=== PATIENT | male | born 1960 | race Caucasian/White ===

== ENCOUNTER 2016-08-11 22:30 | Emergency (ER) | payer MEDICAID ==
[2016-08-12 00:47] LABS: HEMATOCRIT 43.4 % (42.0-54.0); HEMOGLOBIN 14.6 g/dL (13.5-17.5); LYMPHOCYTES 8.1 % (15-50); MCH 29.3 pg (26.0-34.0); MCHC 33.6 g/dL (31.0-37.0); NEUTROPHILS 78.7 % (40-80); PLATELET COUNT 355 10x3/uL (130-400); RBC 4.99 10x6/uL (4.20-6.10); RDW 14.8 % (11.5-14.5); WBC 10.9 10x3/uL (4.8-10.8)
[2016-08-12 00:54] LABS: ALBUMIN 3.4 g/dL (3.4-5.0); ALKALINE PHOSPHATASE 86 U/L (46-116); ALT (SGPT) 12 U/L (10-68); BILIRUBIN - TOTAL 0.93 mg/dL (0.2-1.3); CALC OSMOLALITY 271 mosm/kg (275-300); CALCIUM 9.4 mg/dL (8.5-10.1); CARBON DIOXIDE 23.1 mmol/L (21.0-32.0); CHLORIDE - SERUM 98 mmol/L (98-107); GLUCOSE 132 mg/dL (74-106); POTASSIUM - SERUM 3.6 mmol/L (3.5-5.1); SODIUM 134 mmol/L (136-145); UREA NITROGEN 18 mg/dL (7-18); URIC ACID 7.6 mg/dL (2.6-7.2); eGFR NON AFRICAN AMERICAN 82 mL/min (90-120)
[2016-08-12 00:55] LABS: C-REACTIVE PROTEIN 19.6 mg/dL (0.0-0.9)
[2016-08-13 10:19] LABS: ANA REFLEX - DIRECT Negative (Negative)
[2016-08-30 17:03] VITALS: BMI 25.4
== END 2016-08-12 03:15 | disposition home or self-care (01) ==
LOC: D.ER 22:30
PROVIDERS: Physician Assistant Medical
DX: M10.9 Gout, unspecified (principal); I10 Essential (primary) hypertension; E11.9 Type 2 diabetes mellitus without complications

== ENCOUNTER 2016-08-30 11:33 | Outpatient (CLI) | payer MEDICAID ==
[~2016-08-30] VITALS: Ht 188 cm; Wt 90.0 kg
--- NOTE | ~2016-08-30 | HEMODYNAMI ---
PATIENT:HELEN BELLAMY MEDICAL RECORD: [id number] : 60 LOCATION:[facility] ADMISSION DATE: 08/30/16 Generatedon:08/30/201616:48 Patient name: HELEN BELLAMY Patient #: [id number] SSN: : 1960 Date of study: 08/30/2016 Page: Of Hemodynamic Procedure Report Patient Data Patient Demographics Procedure consent was obtained First Name: HELEN Gender: Male Last Name: JOSESITO : 1960 [facility] Initial: J Age: 56 year(s) Patient #: [id number] Race: Unknown Additional ID: [id number] Contact details Address: [address] [place] [address] State: [place] City: [place] Zip code: [address] Past Medical History Allergies: No known allergies Admission Admission Data Admission Date: 08/30/2016 Admission Time: 11:33 Procedure Procedure Types Cath Procedure Diagnostic Procedure LHC LHC w/Coronaries PCI Procedure Coronary Stent Initial Miscellaneous Procedures Moderate Sedation up to 15 minutes Procedure Description Procedure Date Procedure Date: 08/30/2016 Procedure Start Time: 16:29 Procedure End Time: 16:48 Procedure Staff Name Function Mike Sosa MD Performing Physician Dee Riggs RN Nurse Seamus Walker RT Monitor Mariza Mir RT Scrub Procedure Data Cath Procedure Fluoroscopy Diagnostic fluoroscopy Total fluoroscopy Time: 1.9 time: 1.9 min min Diagnostic fluoroscopy Total fluoroscopy dose: 438 dose: 438 mGy mGy Contrast Material Contrast Material Type Amount (ml) Isovue 300 86 Entry Location Entry Primary Successful Side Size Upsize Upsize Entry Closure Succes sful Closure Location (Fr) 1 (Fr) 2 (Fr) Remarks Device Remarks Femoral Right 6 Fr Exoseal artery Short Estimated blood loss: 10 ml Diagnostic catheters Device Type Used For End Catheter Placement Cordis 5Fr Pigtail Procedure Catheter (MP) Cordis 5Fr JL 4.0 Procedure Catheter (MP) Cordis 5Fr 3DRC Catheter Procedure (MP) Procedure Complications No complications Procedure Medications Medication Administration Route Dosage Oxygen NC 2 l/min Heparin Flush Bag added to field 2 bags (1000units/500ml NS) Lidocaine 2% added to field 20 Versed I.V. 1 mg Fentanyl I.V. 50 mcg Versed I.V. 1 mg Fentanyl I.V. 50 mcg Fentanyl I.V. 50 mcg Versed I.V. 1 mg Versed I.V. 1 mg Fentanyl I.V. 50 mcg Heparin Bolus I.V. 4000 units Hemodynamics Rest Heart Rate: 116 (bpm) Pressure Samples Time Site Value (mmHg) Purpose Heart Use Rate(bpm) 16:32 AO 130/79(101) Snapshot 84 Snapshots Pre Cath Intra NCS Post Cath Vital Signs Time Heart Resp SPO2 NIBP (mmHg) Rhythm Pain Sedation Rate (ipm) (%) Status Level (bpm) 16:11:28 114 21 99 Measuring NSR 0 (11) 10(A) , No pain 16:11:53 110 16 100 206/112(168) NSR 0 (11) 10(A) , No pain 16:16:15 102 16 99 187/103(134) NSR 0 (11) 10(A) , No pain 16:20:39 97 17 98 171/98(129) NSR 0 (11) 10(A) , No pain 16:25:39 92 14 95 Measuring NSR 0 (11) 10(A) , No pain 16:25:42 92 16 95 158/92(118) NSR 0 (11) 10(A) , No pain 16:29:54 86 16 96 139/84(111) NSR 0 (11) 10(A) , No pain 16:34:04 96 16 95 150/95(116) NSR 0 (11) 9(A) , No pain 16:38:20 83 16 96 150/88(132) NSR 0 (11) 9(A) , No pain 16:42:32 89 13 159/95(138) NSR 0 (11) 9(A) , No pain 16:46:50 91 14 155/99(139) NSR 0 (11) 9(A) , No pain Medications Time Medication Route Dose Verified Delivered Reason Notes Effectiveness by by 16:10:40 Oxygen NC 2 Mike Price Per physician l/min Ian Riggs RN 16:10:48 Heparin Flush added 2 Mike Mckeon used for Bag to bags Ian Sosa MD procedure (1000units/500ml field NS) 16:10:54 Lidocaine 2% added 20ml Mike Mike used for to vial Ian Sosa MD procedure field 16:23:41 Versed I.V. 1 mg Mike Dee for sedation Ian Riggs RN 16:23:49 Fentanyl I.V. 50 Mike Dee for sedation mcg Ian Riggs RN 16:25:41 Fentanyl I.V. 50 Mike Dee for sedation mcg Ian Riggs RN 16:25:52 Versed I.V. 1 mg Mike Dee for sedation Ian Riggs RN 16:27:04 Versed I.V. 1 mg Mike Dee for sedation Ian Riggs RN 16:27:57 Fentanyl I.V. 50 Mike Dee for sedation mcg Ian Riggs RN 16:30:28 Versed I.V. 1 mg Mike Dee for sedation Ian Riggs RN 16:30:30 Fentanyl I.V. 50 Mike Dee for sedation mcg Ian Riggs RN 16:35:21 Heparin Bolus I.V. 4000 Mike Dee for dose units Ian Riggs RN anticoagulation verified [facility] sosa Procedure Log Time Note 15:50:01 Seamus Walker RT(R) sent for patient. Start room use. 15:52:02 Time tracking: Regular hours 15:52:05 Plan of Care:Hemodynamics will remain stable., Cardiac rhythm will remain stable., Comfort level will be maintained., Respiratory function will remain adequate., Patient/ family verbilizes understanding of procedure., Procedure tolerated without complication., Recovers from procedure without complications.. 16:04:26 Patient received from ED to CCL 2 Alert and oriented. Tansferred to table in Supine position. 16:04:27 Warm blankets applied, and radha hugger turned on for patient comfort. 16:04:27 Correct patient and procedure confirmed by team. 16:04:28 Signed procedure consent form obtained from patient. 16:04:29 ECG and BP/O2 sat monitors applied to patient. 16:09:40 Vital chart was started 16:10:40 Oxygen 2 l/min NC was administered by Dee Benzie RN; Per physician; 16:10:48 Heparin Flush Bag (1000units/500ml NS) 2 bags added to field was administered by Mike Sosa MD; used for procedure; 16:10:54 Lidocaine 2% 20ml vial added to field was administered by Mike Sosa MD; used for procedure; 16:13:50 Baseline sample Acquired. 16:13:55 Rhythm: sinus tachycardia 16:13:57 Full Disclosure recording started 16:14:05 H&P Date Dictated: 08/30/2016 Emergent; H&P N/A. 16:14:05 Pre-procedure instructions explained to patient. 16:14:05 Pre-op teaching completed and patient verbalized understanding. 16:14:06 Family in waiting room. 16:14:08 Patient NPO since Midnight. 16:14:13 Patient allergic to No known allergies 16:14:15 Is the patient allergic to Iodine/contrast media? No. 16:14:16 Is patient on blood thinner?Yes 16:14:18 ACC The patient was administered the following blood thiners within the last 24 hours: ACCPlavix 16:14:20 Patient diabetic? Yes. 16:14:23 If diabetic: On Metformin? Unknown 16:14:28 Previous problem with sedation/anesthesia? No ? 16:14:29 Snore? Yes 16:14:30 Sleep apnea? No 16:14:31 Deviated septum? No 16:14:32 Opens mouth fully? Yes 16:14:33 Sticks out tongue? Yes 16:14:34 Airway obstruction? No ? 16:14:36 Dentures? No ? 16:14:39 Pre procedure: right dorsailis pedis pulse 1+ Palpable, but thready & weak; easily obliterated 16:14:41 Patient pain scale 0/10 ?. 16:14:49 IV patent on arrival in right wrist with 0.9% NaCl at O. 16:14:51 Lab results completed and on chart. 16:15:00 Right groin area was prepped with chlora-prep and draped in sterile fashion 16:15:01 Alarms reviewed by R. N. 16:15:02 Sharps counted by scrub and verified by R.N. 16:15:05 Use device set Femoral Dx 16:15:07 Tegaderm 4 x 4 opened to sterile field. 16:15:08 Acist Hand Control opened to sterile field. 16:15:09 Acist Manifold opened to sterile field. 16:15:10 Acist Syringe opened to sterile field. 16:15:10 Bag Decanter opened to sterile field. 16:15:10 Medline Cath Pack opened to sterile field. 16:15:11 St [place]by 260cm J .035 wire opened to sterile field. 16:15:12 Diagnostic Infinity 5Fr Multipack catheter opened to sterile field. 16:15:22 Terumo 6Fr [place] Sheath opened to sterile field. 16:23:04 --------ALL STOP TIME OUT------ 16:23:05 Final Timeout: patient, procedure, and site verified with staff and physician. All members of the team are in agreement. 16:23:07 Right groin site verified by team. 16:23:10 Physical assessment completed. ASA score P 2 - A patient with mild systemic disease as per Mike Sosa MD. 16:23:14 Sedation plan: IV Moderate Sedation Versed, Fentanyl 16:23:41 Versed 1 mg I.V. was administered by Dee Riggs RN; for sedation; 16:23:49 Fentanyl 50 mcg I.V. was administered by Dee Riggs RN; for sedation; 16:23:56 Zero performed for pressure channel P1 16:23:59 Zero performed for pressure channel P1 16:24:02 Zero performed for pressure channel P1 16:25:41 Fentanyl 50 mcg I.V. was administered by Dee Rigsg RN; for sedation; 16:25:52 Versed 1 mg I.V. was administered by Dee Riggs RN; for sedation; 16:27:04 Versed 1 mg I.V. was administered by Dee Riggs RN; for sedation; 16:27:57 Fentanyl 50 mcg I.V. was administered by Dee Riggs RN; for sedation; 16:29:40 Procedure started. 16:29:44 Local anesthetic to right femoral artery with Lidocaine 2% by Mike Sosa MD.INITIAL ACCESS ONLY 16:30:28 Versed 1 mg I.V. was administered by Dee Riggs RN; for sedation; 16:30:30 Fentanyl 50 mcg I.V. was administered by Dee Riggs RN; for sedation; 16:30:38 A 6 Fr Short sheath was inserted into the Right Femoral artery 16:30:48 A Cordis 5Fr Pigtail Catheter (MP) was advanced over the wire and used for Procedure. 16:31:03 LV angiography performed. 16:31:05 LV gram done using JACOME 16:31:18 EF : 60 % 16:31:31 Injector settings: Ml/sec: 10, Volume: 20, 16:31:33 Catheter removed. 16:31:57 A Cordis 5Fr JL 4.0 Catheter (MP) was advanced over the wire and used for Procedure. 16:32:29 LCA angiography performed. 16:32:52 Catheter removed. 16:33:27 A Cordis 5Fr 3DRC Catheter (MP) was advanced over the wire and used for Procedure. 16:33:42 RCA angiography performed. 16:33:43 Catheter removed. 16:33:48 Carlos LucidMediaisper J 300cm 0.014 guide wire opened to sterile field. 16:33:49 Alter EcoixCompak Inflation Kit opened to sterile field. 16:35:04 Medtronic Launcher 6Fr 3DRC guide catheter opened to sterile field. 16:35:21 Heparin Bolus 4000 units I.V. was administered by Dee Riggs RN; for anticoagulation; dose verified wt dr sosa 16:35:27 6 Fr 3DRC guide catheter was inserted over the wire 16:35:50 Whisper wire advanced. 16:36:30 Wire advanced across lesion. 16:36:35 Inflation Number: 1 A Medtronic Integrity 3.5 X 15 stent was prepped and advanced across the Prox RCA. The stent was deployed at 17 CONNER for 0:10 (min:sec). 16:37:07 Inflation number: 2 The stent balloon was then re-inflated across the Prox RCA to 13 CONNER for 0:10 (min:sec). 16:37:19 Stent catheter was removed intact over wire. 16:37:20 Wire removed. 16:37:20 Guide catheter removed. 16:37:42 Cordis 6Fr Exoseal opened to sterile field. 16:37:51 Sheath removed intact; hemostasis achieved with Exoseal to the Right Femoral artery. 16:37:53 Procedure ended.(Physican Out) 16:39:44 Fluoroscopy time 01.90 minutes. 16:39:47 Fluoroscopy dose: 438 mGy 16:39:47 Flurop Dose total: 438 16:39:53 Contrast amount:Isovue 300 86ml. 16:39:54 Sharps counted by scrub and verified by R.N. 16:39:55 Insertion/operative site no bleeding no hematoma. 16:39:58 Post-op/insertion site Right Femoral artery dressed using a 4 x 4 and Tegaderm. 16:39:59 Post Procedure Pulses reassessed and unchanged 16:40:01 Post-procedure physical assessment completed. ASA score P 2 - A patient with mild systemic disease as per Mike Sosa MD. 16:40:18 Post procedure rhythm: sinus rhythm 16:40:21 Estimated blood loss: 10 ml 16:40:24 Post procedure instruction explained to patient.Patient verbalizes understanding. 16:40:24 Patient needs reinforcement of post procedure teaching. 16:40:37 Procedure type changed to Cath procedure, Diagnostic procedure, LHC, LHC w/Coronaries, PCI procedure, Coronary Stent Initial, Miscellaneous Procedures, Moderate Sedation up to 15 minutes 16:40:57 Procedure Complication : No complications 16:41:01 Procedure and supply charges have been captured, reviewed, submitted and are correct. 16:47:30 Vital chart was stopped 16:47:31 See physician's report for complete and final results. 16:47:57 Report given to PCU. 16:48:01 Patient transfered to PCU with Bed. 16:48:03 Procedure ended. 16:48:03 Full Disclosure recording stopped 16:48:06 End room use (Document Last) Intervention Summary Intervention Notes Time ActionType Lesion and Equipment Action# Pressure Duration Attributes Used 16:36:35 Place stent Prox RCA Medtronic 1 17 00:10 Integrity 3.5 X 15 stent 16:37:07 Reinflate Prox RCA Medtronic 2 13 00:10 stent Integrity balloon 3.5 X 15 stent Device Usage Item Name Manufacture Quantity Catalog Hospital Part Current Minimal L ot# / Number Charge Number Stock Stock Serial# Code Tegaderm 4 3M 1 1626W 726288 249951 286560 5 x 4 Acist Hand Acist 1 56343 564464 240525 239986 5 UKDN Waterflow Acist Acist 1 51778 097784 581801 350868 5 Mswipe Technologies Acist Acist 1 37637 709358 127831 686206 20 Syringe Medical Systems Inc Bag Microtek 1 2002S 846960 98498 759663 5 Decanter Medical Inc. Medline Cardinal 1 [id number] 573228 61482 353968 [address] [facility] Rob[place] 1 474648 551894 588362 103944 30 260cm J .035 wire Diagnostic Cardinal 1 [id number] 776563 47438 193384 30 Infinity Health 5Fr Multipack catheter Terumo 6Fr Terumo 1 FAP899 880848 422817 211723 40 [place] Sheath Cordis 5Fr Cardinal 1 328965 5 Pigtail Health Catheter (MP) Cordis 5Fr Cardinal 1 316748 5 JL 4.0 Health Catheter (MP) Cordis 5Fr Cardinal 1 796255 5 3DRC Health Catheter (MP) Carlos Carlos 1 [id number] 374124 697176 955291 5 Whisper J Vascular 300cm 0.014 guide wire Merit Merit 1 UP7965 654383 493536 783452 15 BasixComnjk Medical Inflation Kit Medtronic Medtronic 1 [id number] 937631 228282 384447 1 Launcher 6Fr 3DRC guide catheter Medtronic Medtronic 1 [id number] 866977 927785 741911 1 0 [id number] Integrity 3.5 X 15 stent Cordis 6Fr Cardinal 1 EX600 997522 766181 869259 10 [facility] Thrill Signature Audit [place] Stage Time Signature Unsigned Intra-Procedure 08/30/2016 Seamus Walker 4:48:44 PM RT(R) Signatures Monitor : Seamus Walker RT Signature : Date : Time : [facility] [address] [place] [address]
[2016-08-30 12:22] LABS: BASOPHILS 0.4 % (0-2); HEMATOCRIT 45.7 % (42.0-54.0); IMMATURE GRANULOCYTES 0.3 % (0-5); MCH 29.1 pg (26.0-34.0); MCHC 32.8 g/dL (31.0-37.0); MCV 88.7 fL (80.0-100.0); MEAN PLATELET VOLUME 9.9 fL (7.4-10.4); MONOCYTES 7.4 % (2-11); NEUTROPHILS 75.9 % (40-80); PLATELET COUNT 305 10x3/uL (130-400); RBC 5.15 10x6/uL (4.20-6.10); RDW 14.7 % (11.5-14.5); WBC 10.3 10x3/uL (4.8-10.8)
[2016-08-30 12:42] LABS: ALBUMIN 3.8 g/dL (3.4-5.0); ALKALINE PHOSPHATASE 98 U/L (46-116); ALT (SGPT) 20 U/L (10-68); BILIRUBIN - TOTAL 0.33 mg/dL (0.2-1.3); CALC OSMOLALITY 283 mosm/kg (275-300); CALCIUM 9.6 mg/dL (8.5-10.1); CHLORIDE - SERUM 102 mmol/L (98-107); CREATININE - SERUM 1.1 mg/dL (0.6-1.3); GLUCOSE 132 mg/dL (74-106); POTASSIUM - SERUM 3.6 mmol/L (3.5-5.1); PROTEIN - SERUM 7.8 g/dL (6.4-8.2); SODIUM 140 mmol/L (136-145); UREA NITROGEN 22 mg/dL (7-18); eGFR NON AFRICAN AMERICAN 73 mL/min (90-120)
[2016-08-30 12:50] LABS: AMYLASE - SERUM 74 U/L (25-115); LIPASE 253 U/L (73-393); PRO BNP 704 pg/mL (0-125)
[2016-08-30 13:00] LABS: TROPONIN-I < 0.017 ng/mL (0.000-0.060)
[2016-08-30 13:30] LABS: APPEARANCE CLEAR (CLEAR); BILIRUBIN NEGATIVE (NEGATIVE); COLOR STRAW (YELLOW); GLUCOSE NEGATIVE (NEGATIVE); KETONE NEGATIVE (NEGATIVE); LEUKOCYTE ESTERASE NEGATIVE (NEGATIVE); NITRITE NEGATIVE (NEGATIVE); PROTEIN NEGATIVE (NEGATIVE); UROBILINOGEN NORMAL (NORMAL)
[2016-08-30 13:34] LABS: UDS - AMPHET NEGATIVE QUAL (NEGATIVE); UDS - BARB NEGATIVE QUAL (NEGATIVE); UDS - BENZO NEGATIVE QUAL (NEGATIVE); UDS - COCAINE NEGATIVE QUAL (NEGATIVE); UDS - METH NEGATIVE QUAL (NEGATIVE); UDS - OPIATE NEGATIVE QUAL (NEGATIVE); UDS - PCP NEGATIVE QUAL (NEGATIVE); UDS - THC NEGATIVE QUAL (NEGATIVE)
[2016-08-30] MEDS ORDERED: NORVASC5 MG PO (17:02)
[2016-08-30 17:03] VITALS: BP 142/83; Ht 188 cm; Wt 90.0 kg
[2016-08-30] MEDS ORDERED: PLAVIX75 MG PO (17:03)
--- NOTE | 2016-08-30 17:14 | NUR ---
PT ARRIVED TO FLOOR FROM [facility] IN BED. ADMITTED PT FOR BRIGITTE SAENZ. PT COMPLETELY ADMITTED, VS ARE WNL R GROIN SITE WNL. PLACED ON TELE. HANDING OFF PT TO BRIGITTE SAENZ
[2016-08-30 19:00] VITALS: BP 132/69
--- NOTE | 2016-08-30 19:00 | NUR ---
RECEIVED REPORT AND ASSUMED PT CARE FROM DAY SHIFT NURSE @ THIS TIME.
[2016-08-30] MEDS ORDERED: HYDROCODON-ACE1 EAC7 PO (19:42)
--- NOTE | 2016-08-30 21:17 | NUR ---
PT OFF BEDREST. NO NEEDS VOICED. RIGHT GROIN C/D/I. NO HEMATOMA NOTED. IVF'S SALINE LOCKED. NSR ON MONITOR, HR 81. CALL LIGHT WITHIN REACH. WILL CONT TO MONITOR.
[2016-08-31] VITALS: BP 165/79
[2016-08-31 04:26] VITALS: BP 160/82
--- NOTE | 2016-08-31 07:22 | NUR ---
ASSESSMENT COMPLETED.TELEMERTY SHOWS SR 77. ON ROOM AIR. RIGHT HAND SL. RIGHT GROIN SOFT WITH DRSG DRY AND INTACT. C/O KNEE PAIN UNRELIEVED BY NORCO. WILL DISCUSS WITH DR. AMIRAH GRACE WITH SR UP. UP AB DENNISE
--- NOTE | 2016-08-31 07:53 | NUR ---
RESTING QUIETLY RESP UNLABORED PT DENIES ANY NEEDS OR DISCOMFORT NAD NOTED
[2016-08-31 08:12] VITALS: BP 157/80
--- NOTE | 2016-08-31 16:06 | NUR ---
PT DISCHARGED. IV DCD WITH TIP INTACT. INSTRUCTIONS GIVEN TO PT. TO TAXI PER WHEELCHAIR
--- NOTE | 2016-09-04 08:06 | OP ---
PATIENT NAME: HELEN BELLAMY MEDICAL RECORD: [id number] :60 LOCATION:D.CAT ADMISSION DATE: SURGEON: SARI UGALDE MD DATE OF OPERATION: 08/30/2016 PROCEDURES: 1. PTCA stent of RCA. 2. Left heart catheterization. 3. Selective coronary angiography. 4. Left ventriculogram. INDICATION: Angina and coronary artery disease. PROCEDURE: After informed consent was obtained and after detailed explanation of risks, benefits as well as alternative therapies, the patient elected to proceed with angiogram and angioplasty. The right femoral area was prepped and draped in normal sterile fashion. The right femoral artery was cannulated via modified Seldinger technique with placement of 6-Tajik sheath. All catheters exchanged through this sheath. FINDINGS: Left ventriculogram was performed in standard 30-degree JACOME view, reveals preserved cardiac wall motion, ejection fraction 55%. SELECTIVE CORONARY ANGIOGRAPHY: 1. Left main showed no significant angiographic disease. 2. Left anterior descending has mild irregularities, but no flow-limiting stenosis. 3. The left circumflex has mild irregularities, but no flow-limiting stenosis. Previously placed stent in the circumflex and obtuse marginal are widely patent. 4. The right coronary has previously placed stents, these are widely patent; however, proximal to this, in the extreme proximal portion vessel, there is 80% stenosis throughout. PERCUTANEOUS TRANSLUMINAL CORONARY ANGIOPLASTY STENT OF THE RIGTH CORONARY ARTERY: The stent used was a 3.5 x 15-mm Integrity. Result was 0% residual stenosis. OVERALL IMPRESSION: Successful percutaneous transluminal coronary angioplasty stent of the right coronary artery going from 80% initial stenosis to 0% residual. TRANSINT:[id number] Voice Confirmation ID: [id number] DOCUMENT ID: [id number] SARI UGALDE MD at 0806 CC: [id number] DICTATION DATE: 08/30/16 1643 CLIENT RETENTION SPECIALIST: 08/30/16 2352 DEP CLI 08/31/[address] [address]
--- NOTE | 2016-09-04 08:06 | DS ---
PATIENT:HELEN BELLAMY :60 MEDICAL RECORD: [id number] DISCHARGE SUMMARY ADMISSION DATE: 08/30/16 DISCHARGE DATE: 08/31/16 DATE OF SERVICE: 08/31/2016 DISCHARGE: 1. Unstable angina. 2. Coronary artery disease. 3. Percutaneous transluminal coronary angioplasty stent right coronary artery this admission. HOSPITAL COURSE: Mr. Bellamy presents with anginal symptomatology, found to have single vessel disease to the RCA, underwent successful PTCA stent of the RCA. He was discharged home to continue aspirin and Plavix. Follow up with [facility] in 1 month. TRANSINT:[id number] Voice Confirmation ID: [id number] DOCUMENT ID: [id number] SARI UGALDE MD at 0806 CC: [id number] DICTATION DATE: 08/31/16 1114 LACROSSE PLAYER: 08/31/16 2156 DEP CLI 08/31/[address] [address]
--- NOTE | 2016-09-04 08:06 | CN ---
PATIENT NAME:HELEN BELLAMY MEDICAL RECORD: [id number] : 60 LOCATION:D.CAT ADMIT DATE: ACCOUNT: [id number] CONSULTING PHYSICIAN: SARI UGALDE MD REFERRING PHYSICIAN: SARI UGALDE MD DATE OF CONSULTATION: 08/30/2016 DIAGNOSES: 1. Angina. 2. Coronary artery disease. 3. Previous percutaneous transluminal coronary angioplasty stent times 2-vessel, February 2016, at [facility]. HISTORY OF PRESENT ILLNESS: This is a gentleman with a past history of a myocardial infarction, PTCA stent times 2 vessels, at [facility] at [facility] in February 2016, was doing fine until yesterday, but had sudden onset of chest pain yesterday. Chest pain has actually worsened with his myocardial infarction. He has continued to have multiple episodes of chest pain today, he continues to have chest pain. His EKG was nothing acute. His troponin is normal. PHYSICAL EXAMINATION: GENERAL APPEARANCE: Well-nourished, well-developed, appears stated age. Level of distress, comfortable. PSYCHIATRIC: Mental status, alert, normal affect. Orientation, oriented to time, place and person. EYES: Lids and conjunctiva, noninjected. No discharge, no pallor. ENT: Lips, teeth, gums, normal dentition. Oropharynx, no cyanosis, no pallor. NECK: Carotid arteries, bilateral normal upstroke, no bruits, no thrills. JUGULAR VEINS: No jugular venous pressure or distention. CERVICAL LYMPH NODES: Nontender, nonenlarged. THYROID: Not enlarged. Nontender. No nodules. LUNGS: Respiratory effort, unlabored. CHEST: Normal curvature. No thoracic deformity. No chest wall tenderness. Percussion, resonant. Auscultation, clear. No wheezes, no rales, no rhonchi. CARDIOVASCULAR: Precordial exam, nondisplaced. No heaves or pericardial thrills. Rate and rhythm, regular. Heart sounds, normal S1, normal S2. No S3, no gallop, no rub. Systolic murmur, not heard. Diastolic murmur, not heard. EXTREMITIES: No cyanosis, no edema. Peripheral pulses, full and equal in all extremities, except as noted. No bruits appreciated. ABDOMEN: Soft, nondistended. Normal aorta. No bruit. Nontender. No masses. Liver, nontender, no hepatomegaly. Spleen, nontender, no splenomegaly. MUSCULOSKELETAL: No joint tenderness. No joint swelling. No erythema. NEUROLOGICAL: Normal gait, normal strength, normal tone. SKIN: Warm and dry. REVIEW OF SYSTEMS: The patient reports easy bruising but reports no swollen glands. The patient reports no fever, no night sweats, no significant weight gain, no significant weight loss. No significant exercise tolerance. The patient reports no dry eyes, no irritation, no vision change. Patient reports no difficulty hearing and no ear pain. Patient reports no frequent nose bleeds or nose and sinus problems. Patient reports on arm pain on exertion. No shortness of breath while lying down. No history of heart murmur. Patient reports no cough, no wheezing or coughing up blood. Patient reports no abdominal pain, no vomiting. Normal appetite. No diarrhea and not vomiting blood. No nausea and no constipation. Patient reports no incontinence. No CONSULT REPORT [id number] HELEN BELLAMY difficulty urinating. No hematuria. No increased frequency. Patient reports no muscle aches. No weakness, no arthralgias, no back pain. No swelling of the extremities. Patient reports no abnormal mole, no jaundice, no rashes. Reports no loss of consciousness. No weakness and no numbness. No seizures, dizziness, or headaches. The patient reports no depression, no sleep disturbance, feeling safe in a relationship and no alcohol abuse. Patient reports on fatigue. Reports no runny nose or sinus pressure. No itching, no hives, and no frequent sneezing. OVERALL IMPRESSION: Chest pain of unknown etiology. We will proceed with coronary angiography. Further care depends upon findings of the angiography. TRANSINT:[id number] Voice Confirmation ID: [id number] DOCUMENT ID: [id number] SARI UGALDE MD at 0806 CC: [id number] DICTATION DATE: 08/30/16 1531 CONTINUOUS MINER OPERATOR HELPER: 08/30/16 1559 [facility] CLI 08/31/16 [place] [id number]
== END 2016-08-31 15:30 | disposition home or self-care (01) ==
LOC: D.CATH 11:33 → D.ER 11:33 → EDSTATUS 14:30 → D.M2 16:53 → D.CATH 08-31 15:30
PROVIDERS: Family Medicine
DX: I25.110 Atherosclerotic heart disease of native coronary artery with unstable angina pectoris (principal); Z95.5 Presence of coronary angioplasty implant and graft

== ENCOUNTER 2016-09-01 04:55 | Emergency (ER) | payer MEDICAID ==
[2016-08-30 17:03] VITALS: BMI 25.4
[~2016-09-01 04:55] MED LIST: HYDROCODON-ACE1 EAC7 PO; NORVASC5 MG PO; PLAVIX75 MG PO
[2016-09-01 05:27] LABS: APPEARANCE CLEAR (CLEAR); BILIRUBIN NEGATIVE (NEGATIVE); COLOR YELLOW (YELLOW); GLUCOSE NEGATIVE (NEGATIVE); KETONE NEGATIVE (NEGATIVE); LEUKOCYTE ESTERASE NEGATIVE (NEGATIVE); NITRITE NEGATIVE (NEGATIVE); PROTEIN NEGATIVE (NEGATIVE); UROBILINOGEN NORMAL (NORMAL)
[2016-09-01 05:28] LABS: UDS - AMPHET NEGATIVE QUAL (NEGATIVE); UDS - BARB NEGATIVE QUAL (NEGATIVE); UDS - BENZO NEGATIVE QUAL (NEGATIVE); UDS - COCAINE NEGATIVE QUAL (NEGATIVE); UDS - METH NEGATIVE QUAL (NEGATIVE); UDS - OPIATE POSITIVE QUAL (NEGATIVE); UDS - PCP NEGATIVE QUAL (NEGATIVE); UDS - THC NEGATIVE QUAL (NEGATIVE)
[2016-09-01 06:01] LABS: BASOPHILS 0.7 % (0-2); EOSINOPHILS 4.7 % (0-7); HEMATOCRIT 42.2 % (42.0-54.0); HEMOGLOBIN 13.5 g/dL (13.5-17.5); IMMATURE GRANULOCYTES 0.4 % (0-5); LYMPHOCYTES 20.6 % (15-50); MCH 28.8 pg (26.0-34.0); MCV 90.2 fL (80.0-100.0); MEAN PLATELET VOLUME 10.4 fL (7.4-10.4); MONOCYTES 9.2 % (2-11); NEUTROPHILS 64.4 % (40-80); PLATELET COUNT 248 10x3/uL (130-400); RBC 4.68 10x6/uL (4.20-6.10); RDW 15.2 % (11.5-14.5)
[2016-09-01 06:04] LABS: WBC 5.6 10x3/uL (4.8-10.8)
[2016-09-01 06:12] LABS: CALC OSMOLALITY 284 mosm/kg (275-300); CALCIUM 8.9 mg/dL (8.5-10.1); CARBON DIOXIDE 24.1 mmol/L (21.0-32.0); CHLORIDE - SERUM 105 mmol/L (98-107); CREATININE - SERUM 0.9 mg/dL (0.6-1.3); GLUCOSE 128 mg/dL (74-106); SODIUM 141 mmol/L (136-145); UREA NITROGEN 17 mg/dL (7-18); eGFR NON AFRICAN AMERICAN > 90 mL/min (90-120)
== END 2016-09-01 18:45 | disposition short-term general hospital (02) ==
LOC: D.ER 04:55
PROVIDERS: Family Medicine
DX: F32.9 Major depressive disorder, single episode, unspecified (principal); I10 Essential (primary) hypertension; E11.9 Type 2 diabetes mellitus without complications

== ENCOUNTER 2017-05-26 17:12 | Emergency (ER) | payer MEDICAID ==
[2016-08-30 17:03] VITALS: BMI 25.4
[2017-05-26 17:36] LABS: BASOPHILS 0.5 % (0-2); EOSINOPHILS 2.5 % (0-7); HEMATOCRIT 39.8 % (42.0-54.0); HEMOGLOBIN 12.6 g/dL (13.5-17.5); IMMATURE GRANULOCYTES 0.8 % (0-5); LYMPHOCYTES 14.8 % (15-50); MCH 28.4 pg (26.0-34.0); MCHC 31.7 g/dL (31.0-37.0); MCV 89.8 fL (80.0-100.0); MEAN PLATELET VOLUME 9.8 fL (7.4-10.4); MONOCYTES 7.8 % (2-11); NEUTROPHILS 73.6 % (40-80); RBC 4.43 10x6/uL (4.20-6.10); RDW 14.9 % (11.5-14.5); WBC 9.1 10x3/uL (4.8-10.8)
[2017-05-26 17:38] LABS: PLATELET COUNT 303 10x3/uL (130-400)
[2017-05-26 17:50] LABS: ALBUMIN 3.8 g/dL (3.4-5.0); ALKALINE PHOSPHATASE 92 U/L (46-116); ALT (SGPT) 18 U/L (10-68); BILIRUBIN - TOTAL 0.53 mg/dL (0.2-1.3); CALC OSMOLALITY 286 mosm/kg (275-300); CALCIUM 10.1 mg/dL (8.5-10.1); CARBON DIOXIDE 23.9 mmol/L (21.0-32.0); CHLORIDE - SERUM 103 mmol/L (98-107); CREATININE - SERUM 1.5 mg/dL (0.6-1.3); GLUCOSE 153 mg/dL (74-106); POTASSIUM - SERUM 4.2 mmol/L (3.5-5.1); PROTEIN - SERUM 7.8 g/dL (6.4-8.2); SODIUM 138 mmol/L (136-145); UREA NITROGEN 34 mg/dL (7-18); eGFR NON AFRICAN AMERICAN 51 mL/min (90-120)
[2017-05-26 18:07] LABS: CHOLESTEROL, TOTAL 109 mg/dL (0-200); CKMB 0.7 U/L (0.0-3.6); CREATINE KINASE 56 UL (21-232); HDL CHOLESTEROL 27 mg/dL (32-96); LDL CHOLESTEROL 61 mg/dL (0-100); LDL-HDL RATIO 2.3 ratio (1.5-3.5); TRIGLYCERIDE 108 mg/dL (30-200)
[2017-05-26 18:16] LABS: TROPONIN-I < 0.017 ng/mL (0.000-0.060)
[2017-05-26 20:16] LABS: UDS - AMPHET NEGATIVE QUAL (NEGATIVE); UDS - BARB NEGATIVE QUAL (NEGATIVE); UDS - BENZO NEGATIVE QUAL (NEGATIVE); UDS - COCAINE NEGATIVE QUAL (NEGATIVE); UDS - OPIATE NEGATIVE QUAL (NEGATIVE); UDS - PCP NEGATIVE QUAL (NEGATIVE); UDS - THC NEGATIVE QUAL (NEGATIVE)
[2017-05-26 20:22] LABS: APPEARANCE HAZY (CLEAR); COLOR YELLOW (YELLOW); SPECIFIC GRAVITY 1.015 (1.005-1.020)
[2017-05-26 20:23] LABS: BILIRUBIN NEGATIVE (NEGATIVE); GLUCOSE NEGATIVE (NEGATIVE); KETONE NEGATIVE (NEGATIVE); NITRITE POSITIVE (NEGATIVE); PROTEIN TRACE mg/dL (NEGATIVE); UROBILINOGEN NORMAL (NORMAL); WHITE CELLS - URINE 25-50 /hpf (0-5)
[2017-05-26 20:24] LABS: BACTERIA MANY /hpf (NONE SEEN); EPITHELIAL CELLS 0-5 /hpf (0-5)
== END 2017-05-27 05:07 | disposition short-term general hospital (02) ==
LOC: D.ER 17:12
PROVIDERS: Family Medicine
DX: R07.9 Chest pain, unspecified (principal); I10 Essential (primary) hypertension; E11.9 Type 2 diabetes mellitus without complications

== ENCOUNTER 2017-10-08 15:04 | Emergency (ER) | payer MEDICAID ==
[2016-08-30 17:03] VITALS: BMI 25.4
[2017-10-08 15:48] LABS: BASOPHILS 0.6 % (0-2); EOSINOPHILS 4.7 % (0-7); HEMATOCRIT 44.9 % (42.0-54.0); HEMOGLOBIN 14.2 g/dL (13.5-17.5); IMMATURE GRANULOCYTES 0.8 % (0-5); LYMPHOCYTES 19.4 % (15-50); MCH 27.5 pg (26.0-34.0); MCHC 31.6 g/dL (31.0-37.0); MCV 86.8 fL (80.0-100.0); MEAN PLATELET VOLUME 9.6 fL (7.4-10.4); MONOCYTES 6.2 % (2-11); NEUTROPHILS 68.3 % (40-80); RBC 5.17 10x6/uL (4.20-6.10); RDW 15.8 % (11.5-14.5); WBC 10.7 10x3/uL (4.8-10.8)
[2017-10-08 15:51] LABS: PLATELET COUNT 397 10x3/uL (130-400)
[2017-10-08 16:01] LABS: ALBUMIN 3.9 g/dL (3.4-5.0); ANION GAP 15.4 mmol/L (8-16); BILIRUBIN - TOTAL 0.45 mg/dL (0.2-1.3); CALCIUM 9.8 mg/dL (8.5-10.1); CARBON DIOXIDE 29.3 mmol/L (21.0-32.0); CREATININE - SERUM 1.2 mg/dL (0.6-1.3); POTASSIUM - SERUM 3.7 mmol/L (3.5-5.1); PROTEIN - SERUM 8.3 g/dL (6.4-8.2)
[2017-10-08 16:03] LABS: APPEARANCE CLEAR (CLEAR); BILIRUBIN NEGATIVE (NEGATIVE); COLOR DK YELLOW (YELLOW); GLUCOSE NEGATIVE (NEGATIVE); KETONE NEGATIVE (NEGATIVE); NITRITE NEGATIVE (NEGATIVE); PROTEIN 1+ mg/dL (NEGATIVE); UROBILINOGEN NORMAL (NORMAL)
[2017-10-08 16:05] LABS: BACTERIA MANY /hpf (NONE SEEN); RED CELLS - URINE 0-5 /hpf (0-5)
[2017-10-08 17:58] LABS: UDS - AMPHET NEGATIVE QUAL (NEGATIVE); UDS - BARB NEGATIVE QUAL (NEGATIVE); UDS - BENZO POSITIVE QUAL (NEGATIVE); UDS - COCAINE NEGATIVE QUAL (NEGATIVE); UDS - OPIATE NEGATIVE QUAL (NEGATIVE); UDS - PCP NEGATIVE QUAL (NEGATIVE); UDS - THC NEGATIVE QUAL (NEGATIVE)
== END 2017-10-08 22:30 | disposition home or self-care (01) ==
LOC: D.ER 15:04
PROVIDERS: Family Medicine
DX: R45.851 Suicidal ideations (principal); Z86.59 Personal history of other mental and behavioral disorders; N39.0 Urinary tract infection, site not specified; I10 Essential (primary) hypertension; E11.9 Type 2 diabetes mellitus without complications

== ENCOUNTER 2018-02-16 17:43 | Inpatient (IN) | payer MEDICAID ==
[~2018-02-16] VITALS: Ht 188 cm; Wt 93.2 kg
--- NOTE | ~2018-02-16 | MORECARE ---
CASE MANAGEMENT DISCHARGE SUMMARY PATIENT: HELEN BELLAMY UNIT: [id number] ADM DATE: 02/19/18 AGE: 57 : 60 SEX: M ROOM/BED: D.2234 AUTHOR: MAVIS VILLALBA PHYSICIAN: REFERRING PHYSICIAN: ERIC LAYTON MD DATE OF SERVICE: 02/24/18 Discharge Plan Patient Name: HELEN BELLAMY Facility: [facility]:[place] : 1960 Planned Disposition: Inpatient Rehab Anticipated Discharge Date: Discharge Date: Expected LOS: Initial Reviewer: [id number] Initial Review Date: 02/16/2018 Generated: 02/24/18 5:18 pm Comments DCP- Discharge Planning Updated by [id number]: Alexsandra Soriano on 02/18/18 9:[address] Patient Name: HELEN BELLAMY Admission Status: ER Accout number: [id number] Admission Date: 02-16-2018 : 1960 Admission Diagnosis: Attending: ERIC LAYTON Current LOS: 2 Anticipated DC Date: Planned Disposition: Inpatient Rehab [place] [employer] Discharge Planning Comments: CM met with patient to assess discharge planning needs. Patient was recently discharged from [facility] for suicidal ideation (he denies any thoughts at this time) he took a taxi to [facility] where he could not walk and they called EMS and he was brought to the hospital. He stated that he had been in a wheelchair for a long time at [facility], but before that he was independent with ambulation. He denies any DME. He did stated that his sister has MS and he also had a tick bite about 6 weeks ago. Referral made to [facility] and I spoke with Araceli. He stated that he ahs 2 kids, one that lives in [place] and one in [place]. He has filled for disability with an state's attorney. CM will continue to follow and assist with DC planning . Cloth Mercerizing Supervisor: Alexsandra Soriano DCPIA - Discharge Planning Initial Assessment Updated by [email or web address]: Alexsandra Soriano on 02/18/18 10:51 am * Is the patient Alert and Oriented? Yes * How many steps to enter\exit or inside your home? * PCP SHANNA * Pharmacy [place] * Preadmission Environment Homeless * Other Environment CAME FROM [facility] * ADLs Partial Dependent * Partial ADLs (Assistance needed) Ambulation * Equipment None * List name and contact numbers for known caregivers / representatives who currently or will assist patient after discharge: HELEN BELLAMY JR (SON) [phone] * Verbal permission to speak to the caregivers and representatives has been obtained from the patient. N/A * Community resources currently utilized None * Additional services required to return to the preadmission environment? Yes * Can the patient safely return to the preadmission environment? No * Has this patient been hospitalized within the prior 30 days at any hospital? No Last DP export: 02/18/18 9:56 Patient Name: HELEN BELLAMY Page [id number] at 1618 All edits/amendments must be made on the electronic document DICTATION DATE: 02/24/181617 ONLINE MARKETING COORDINATOR: VJ 02/24/181617 RPT#: [id number] DC DATE: STATUS: ADM IN [facility] [address] [place] [address] END OF REPORT
--- NOTE | ~2018-02-16 | MORECARE ---
CASE MANAGEMENT DISCHARGE SUMMARY PATIENT: HELEN BELLAMY UNIT: [id number] ADM DATE: 02/19/18 AGE: 57 : 60 SEX: M ROOM/BED: D.2234 AUTHOR: MAVIS VILLALBA PHYSICIAN: REFERRING PHYSICIAN: ERIC LAYTON MD DATE OF SERVICE: 02/25/18 Discharge Plan Patient Name: HELEN BELLAMY Facility: [facility]:[place] : 1960 Planned Disposition: Inpatient Rehab Anticipated Discharge Date: 02/25/18 Discharge Date: Expected LOS: 6 Initial Reviewer: [id number] Initial Review Date: 02/16/2018 Generated: 02/25/18 12:37 pm Comments DCP- Discharge Planning Updated by [email or web address]: Su Blake on 02/25/18 10:[address] Patient Name: HELEN BELLAMY Admission Status: ER Accout number: [id number] Admission Date: 02-19-2018 : 1960 Admission Diagnosis:WEAKNESS Attending: ERCI LAYTON Current LOS: 6 Anticipated DC Date: Planned Disposition: Inpatient Rehab Primary Insurance: [place]ID [place] Discharge Planning Comments: CM HAS BEEN WORKING WITH [facility] ADMIT FOR TRANSFER OF PATIENT TO ANOTHER FACILITY. PATIENT WAS ACCEPTED BY DR. DING AT [facility] TO ROOM 409. DR. PALMER OR SOULEYMANE GOVEA DID THE DOC TO DOC. PT TO BE TRANSFERED FOR HIGHER LEVEL OF CARE, NEUROLOGY. TRANSFER BACK DOCUMENTS COMPLETED. PATIENT TO BE TRANSPORTED BY EMS. CM WILL FOLLOW AND ASSIST NEEDED WITH TRANSFER. Supervisor Production Managing: Su Blake DCP- Discharge Planning Updated by [email or web address]: Su Blake on 02/24/18 3:[address] Patient Name: HELEN BELLAMY Admission Status: ER Accout number: [id number] Admission Date: 02-19-2018 : 1960 Admission Diagnosis:WEAKNESS Attending: ERIC LAYTON Current LOS: 5 Anticipated DC Date: Planned Disposition: Inpatient Rehab Primary Insurance: [place] Discharge Planning Comments: CM CALLED EASY ADMIT AT TO BEGIN THE TRANSFER TO ANOTHER FACILITY . MD STATES PATIENT NEEDS TO BE TRANSFERED TO A HIGHER LEVEL OF CARE FACILITY FOR NEUROLOGY. DR. KEM PALMER SIGNED THE TRANSFER FORM. WAITING FOR EASY ADMIT TO CALL THE NURSING UNIT BACK. Supervisor Production Managing: Su Blake DCP- Discharge Planning Updated by [id number]: Alexasndra Soriano on 02/18/18 9:[address] Patient Name: HELEN BELLAMY Admission Status: ER Accout number: [id number] Admission Date: 02-16-2018 : 1960 Admission Diagnosis: Attending: ERIC LAYTON Current LOS: 2 Anticipated DC Date: Planned Disposition: Inpatient Rehab [place] [employer] Discharge Planning Comments: CM met with patient to assess discharge planning needs. Patient was recently discharged from [facility] for suicidal ideation (he denies any thoughts at this time) he took a taxi to [facility] where he could not walk and they called EMS and he was brought to the hospital. He stated that he had been in a wheelchair for a long time at [facility], but before that he was independent with ambulation. He denies any DME. He did stated that his sister has MS and he also had a tick bite about 6 weeks ago. Referral made to [facility] and I spoke with Araceli. He stated that he ahs 2 kids, one that lives in [place] and one in [place]. He has filled for disability with an consumer attorney. CM will continue to follow and assist with DC planning . Supervisor Production Managing: Alexsandra Soriano DCPIA - Discharge Planning Initial Assessment Updated by [email or web address]: Alexsandra Soriano on 02/18/18 10:51 am * Is the patient Alert and Oriented? Yes * How many steps to enter\exit or inside your home? * PCP SHANNA * Pharmacy [facility] * Preadmission Environment Homeless * Other Environment CAME FROM [facility] * ADLs Partial Dependent * Partial ADLs (Assistance needed) Ambulation * Equipment None * List name and contact numbers for known caregivers / representatives who currently or will assist patient after discharge: HELEN BELLAMY JR (SON) [phone] * Verbal permission to speak to the caregivers and representatives has been obtained from the patient. N/A * Community resources currently utilized None * Additional services required to return to the preadmission environment? Yes * Can the patient safely return to the preadmission environment? No * Has this patient been hospitalized within the prior 30 days at any hospital? No Last DP export: 02/24/18 3:26 Patient Name: HELEN BELLAMY Page [id number] at 1137 All edits/amendments must be made on the electronic document DICTATION DATE: 02/25/181136 APPLIANCE MECHANIC: VJ 02/25/181136 RPT#: [id number] DC DATE: STATUS: ADM IN [facility] [address] [place] [address] END OF REPORT
--- NOTE | ~2018-02-16 | MORECARE ---
CASE MANAGEMENT DISCHARGE SUMMARY PATIENT: HELEN BELLAMY UNIT: [id number] ADM DATE: 02/19/18 AGE: 57 : 60 SEX: M ROOM/BED: D.2234 AUTHOR: MAVIS VILLALBA PHYSICIAN: REFERRING PHYSICIAN: ERIC LAYTON MD DATE OF SERVICE: 03/02/18 Discharge Plan Patient Name: HELEN BELLAMY Facility: [facility]:[place] : 1960 Planned Disposition: Inpatient Rehab Anticipated Discharge Date: 02/25/18 Discharge Date: 02/25/2018 Expected LOS: 6 Initial Reviewer: [id number] Initial Review Date: 02/16/2018 Generated: 03/02/18 9:18 am Comments DCP- Discharge Planning Updated by [email or web address]: Su Blake on 02/25/18 10:[address] Patient Name: HELEN BELLAMY Admission Status: ER Accout number: [id number] Admission Date: 02-19-2018 : 1960 Admission Diagnosis:WEAKNESS Attending: ERIC LAYTON Current LOS: 6 Anticipated DC Date: Planned Disposition: Inpatient Rehab Primary Insurance: [place] Discharge Planning Comments: CM HAS BEEN WORKING WITH EASY ADMIT FOR TRANSFER OF PATIENT TO ANOTHER FACILITY. PATIENT WAS ACCEPTED BY DR. DING AT [facility] TO ROOM 409. DR. PALMER OR SOULEYMANE GOVEA DID THE DOC TO DOC. PT TO BE TRANSFERED FOR HIGHER LEVEL OF CARE, NEUROLOGY. TRANSFER BACK DOCUMENTS COMPLETED. PATIENT TO BE TRANSPORTED BY EMS. CM WILL FOLLOW AND ASSIST NEEDED WITH TRANSFER. Forming Machine Adjuster: Su Blake DCP- Discharge Planning Updated by [id number]: Su Blake on 02/24/18 3:[address] Patient Name: HELEN BELLAMY Admission Status: ER Accout number: [id number] Admission Date: 02-19-2018 : 1960 Admission Diagnosis:WEAKNESS Attending: ERIC LAYTON Current LOS: 5 Anticipated DC Date: Planned Disposition: Inpatient Rehab Primary Insurance: [place] Discharge Planning Comments: CM CALLED EASY ADMIT AT TO BEGIN THE TRANSFER TO ANOTHER FACILITY . MD STATES PATIENT NEEDS TO BE TRANSFERED TO A HIGHER LEVEL OF CARE FACILITY FOR NEUROLOGY. DR. KEM PALMER SIGNED THE TRANSFER FORM. WAITING FOR EASY ADMIT TO CALL THE NURSING UNIT BACK. Forming Machine Adjuster: Su Blake DCP- Discharge Planning Updated by [email or web address]: Alexsandra Soriano on 02/18/18 9:[address] Patient Name: HELEN BELLAMY Admission Status: ER Accout number: [id number] Admission Date: 02-16-2018 : 1960 Admission Diagnosis: Attending: ERIC LAYTON Current LOS: 2 Anticipated DC Date: Planned Disposition: Inpatient Rehab [place] [employer] Discharge Planning Comments: CM met with patient to assess discharge planning needs. Patient was recently discharged from [facility] for suicidal ideation (he denies any thoughts at this time) he took a taxi to [facility] where he could not walk and they called EMS and he was brought to the hospital. He stated that he had been in a wheelchair for a long time at [facility], but before that he was independent with ambulation. He denies any DME. He did stated that his sister has MS and he also had a tick bite about 6 weeks ago. Referral made to [facility] and I spoke with Araceli. He stated that he ahs 2 kids, one that lives in [place] and one in [place]. He has filled for disability with an real estate associate attorney. CM will continue to follow and assist with DC planning . Forming Machine Adjuster: Alexsandra Soriano DCPIA - Discharge Planning Initial Assessment Updated by [email or web address]: Alexsandra Soriano on 02/18/18 10:51 am * Is the patient Alert and Oriented? Yes * How many steps to enter\exit or inside your home? * PCP SHANNA * Pharmacy [facility] * Preadmission Environment Homeless * Other Environment CAME FROM [facility] * ADLs Partial Dependent * Partial ADLs (Assistance needed) Ambulation * Equipment None * List name and contact numbers for known caregivers / representatives who currently or will assist patient after discharge: HELEN BELLAMY JR (SON) [phone] * Verbal permission to speak to the caregivers and representatives has been obtained from the patient. N/A * Community resources currently utilized None * Additional services required to return to the preadmission environment? Yes * Can the patient safely return to the preadmission environment? No * Has this patient been hospitalized within the prior 30 days at any hospital? No Last DP export: 02/25/18 10:37 Patient Name: HELEN BELLAMY Page 93417 at 0818 All edits/amendments must be made on the electronic document DICTATION DATE: 03/02/18817 EQUIPMENT MAINTENANCE SUPERINTENDENT: VJ 03/02/18817 RPT#: [id number] DC DATE:02/25/18 STATUS: DIS IN [facility] [address] [place] [address] END OF REPORT
--- NOTE | ~2018-02-16 | MORECARE ---
CASE MANAGEMENT DISCHARGE SUMMARY PATIENT: HELEN BELLAMY UNIT: [id number] ADM DATE: 02/19/18 AGE: 57 : 60 SEX: M ROOM/BED: D.2234 AUTHOR: MAVIS VILLALBA PHYSICIAN: REFERRING PHYSICIAN: ERIC LAYTON MD DATE OF SERVICE: 02/24/18 Discharge Plan Patient Name: HELEN BELLAMY Facility: [facility]:[place] : 1960 Planned Disposition: Inpatient Rehab Anticipated Discharge Date: Discharge Date: Expected LOS: Initial Reviewer: [id number] Initial Review Date: 02/16/2018 Generated: 02/24/18 5:26 pm Comments DCP- Discharge Planning Updated by [id number]: Su Blake on 02/24/18 3:[address] Patient Name: HELEN BELLAMY Admission Status: ER Accout number: [id number] Admission Date: 02-19-2018 : 1960 Admission Diagnosis:WEAKNESS Attending: ERIC LAYTON Current LOS: 5 Anticipated DC Date: Planned Disposition: Inpatient Rehab Primary Insurance: [place]ID [place] Discharge Planning Comments: CM CALLED EASY ADMIT AT TO BEGIN THE TRANSFER TO ANOTHER FACILITY . MD STATES PATIENT NEEDS TO BE TRANSFERED TO A HIGHER LEVEL OF CARE FACILITY FOR NEUROLOGY. DR. KEM PALMER SIGNED THE TRANSFER FORM. WAITING FOR EASY ADMIT TO CALL THE NURSING UNIT BACK. Can Washer: Su Blake DCP- Discharge Planning Updated by [email or web address]: Alexsandra Soriano on 02/18/18 9:[address] Patient Name: HELEN BELLAMY Admission Status: ER Accout number: [id number] Admission Date: 02-16-2018 : 1960 Admission Diagnosis: Attending: ERIC LAYTON Current LOS: 2 Anticipated DC Date: Planned Disposition: Inpatient Rehab Primary Insurance: [place] [facility] Discharge Planning Comments: CM met with patient to assess discharge planning needs. Patient was recently discharged from [facility] for suicidal ideation (he denies any thoughts at this time) he took a taxi to [facility] where he could not walk and they called EMS and he was brought to the hospital. He stated that he had been in a wheelchair for a long time at [facility], but before that he was independent with ambulation. He denies any DME. He did stated that his sister has MS and he also had a tick bite about 6 weeks ago. Referral made to [facility] and I spoke with Araceli. He stated that he ahs 2 kids, one that lives in [place] and one in [place]. He has filled for disability with an senior trial attorney. CM will continue to follow and assist with DC planning . Can Washer: Alexsandra Soriano DCPIA - Discharge Planning Initial Assessment Updated by [email or web address]: Alexsandra Soriano on 02/18/18 10:51 am * Is the patient Alert and Oriented? Yes * How many steps to enter\exit or inside your home? * PCP SHANNA * Pharmacy [facility] * Preadmission Environment Homeless * Other Environment CAME FROM [facility] * ADLs Partial Dependent * Partial ADLs (Assistance needed) Ambulation * Equipment None * List name and contact numbers for known caregivers / representatives who currently or will assist patient after discharge: HELEN BELLAMY JR (SON) [phone] * Verbal permission to speak to the caregivers and representatives has been obtained from the patient. N/A * Community resources currently utilized None * Additional services required to return to the preadmission environment? Yes * Can the patient safely return to the preadmission environment? No * Has this patient been hospitalized within the prior 30 days at any hospital? No Last DP export: 02/24/18 3:18 Patient Name: HELEN BELLAMY Page 14480 at 1627 All edits/amendments must be made on the electronic document DICTATION DATE: 02/24/181625 FORMAL SERVICE WAITER: VJ 02/24/181625 RPT#: [id number] [place] DATE: STATUS: ADM IN [facility] [address] [place] [address] END OF REPORT
[2018-02-16 19:18] LABS: BASOPHILS 0.8 % (0-2); EOSINOPHILS 5.7 % (0-7); HEMATOCRIT 37.7 % (42.0-54.0); HEMOGLOBIN 11.6 g/dL (13.5-17.5); MCH 28.1 pg (26.0-34.0); MCHC 30.8 g/dL (31.0-37.0); MCV 91.3 fL (80.0-100.0); MEAN PLATELET VOLUME 9.8 fL (7.4-10.4); MONOCYTES 10.1 % (2-11); NEUTROPHILS 61.4 % (40-80); PLATELET COUNT 334 10x3/uL (130-400); RBC 4.13 10x6/uL (4.20-6.10); RDW 17.8 % (11.5-14.5); WBC 8.9 10x3/uL (4.8-10.8)
[2018-02-16 19:43] LABS: ALBUMIN 3.2 g/dL (3.4-5.0); ALKALINE PHOSPHATASE 106 U/L (46-116); ALT (SGPT) 21 U/L (10-68); CALC OSMOLALITY 283 mosm/kg (275-300); CALCIUM 9.3 mg/dL (8.5-10.1); CARBON DIOXIDE 24.9 mmol/L (21.0-32.0); CHLORIDE - SERUM 104 mmol/L (98-107); CREATININE - SERUM 0.9 mg/dL (0.6-1.3); GLUCOSE 133 mg/dL (74-106); POTASSIUM - SERUM 3.8 mmol/L (3.5-5.1); PROTEIN - SERUM 7.1 g/dL (6.4-8.2); SODIUM 140 mmol/L (136-145); UREA NITROGEN 21 mg/dL (7-18); eGFR NON AFRICAN AMERICAN > 90 mL/min (90-120)
[2018-02-16 19:50] LABS: C-REACTIVE PROTEIN 1.7 mg/dL (0.0-0.9); CREATINE KINASE 20 UL (21-232); THYROID STIMULATING HORMONE 3.13 uIU/mL (0.36-3.74)
[2018-02-16 20:17] LABS: APPEARANCE CLEAR (CLEAR); BILIRUBIN NEGATIVE (NEGATIVE); COLOR YELLOW (YELLOW); GLUCOSE NEGATIVE (NEGATIVE); KETONE NEGATIVE (NEGATIVE); NITRITE NEGATIVE (NEGATIVE); PROTEIN NEGATIVE (NEGATIVE); SPECIFIC GRAVITY 1.015 (1.005-1.020); UROBILINOGEN NORMAL (NORMAL)
[2018-02-16 20:29] LABS: UDS - AMPHET NEGATIVE QUAL (NEGATIVE); UDS - BARB NEGATIVE QUAL (NEGATIVE); UDS - BENZO POSITIVE QUAL (NEGATIVE); UDS - COCAINE NEGATIVE QUAL (NEGATIVE); UDS - OPIATE NEGATIVE QUAL (NEGATIVE); UDS - PCP NEGATIVE QUAL (NEGATIVE); UDS - THC NEGATIVE QUAL (NEGATIVE)
[2018-02-16] MEDS ORDERED: DESERYL50 M2 PO (23:21)
[2018-02-16] MEDS ORDERED: GLUCOTROL ER2.5 MG PO (23:22)
[2018-02-16] MEDS ORDERED: AMBIEN10 MG PO (23:23)
[2018-02-16] MEDS ORDERED: LITHIUM CARBON300 MG PO (23:24)
[2018-02-16] MEDS ORDERED: HYDRALAZINE HCL50 MG PO (23:24)
[2018-02-16] MEDS ORDERED: COREG25 MG PO (23:25)
[2018-02-16] MEDS ORDERED: GLUCOPHAGE1000 MG PO (23:26)
[2018-02-16] MEDS ORDERED: ZYLOPRIM100 MG PO (23:27)
[2018-02-16] MEDS ORDERED: FLOMAX0.4 MG PO (23:27)
[2018-02-16] MEDS ORDERED: BUSPAR 15 MG TA15 MG PO (23:28)
[2018-02-16] MEDS ORDERED: CELEXA40 MG PO (23:28)
[2018-02-16] MEDS ORDERED: PROPRANOLOL HCL20 MG PO (23:29)
[2018-02-17 00:32] VITALS: BP 154/70; BMI 26.3
[2018-02-17 05:31] VITALS: BP 124/58
[2018-02-17 08:08] VITALS: BP 167/82
[2018-02-17 10:51] LABS: BASOPHILS 0.8 % (0-2); EOSINOPHILS 5.3 % (0-7); HEMATOCRIT 36.6 % (42.0-54.0); HEMOGLOBIN 11.5 g/dL (13.5-17.5); IMMATURE GRANULOCYTES 0.5 % (0-5); LYMPHOCYTES 18.4 % (15-50); MCH 28.6 pg (26.0-34.0); MCHC 31.4 g/dL (31.0-37.0); MEAN PLATELET VOLUME 10.1 fL (7.4-10.4); MONOCYTES 8.5 % (2-11); NEUTROPHILS 66.5 % (40-80); PLATELET COUNT 334 10x3/uL (130-400); RBC 4.02 10x6/uL (4.20-6.10); RDW 17.9 % (11.5-14.5); WBC 7.4 10x3/uL (4.8-10.8)
[2018-02-17 10:53] LABS: ALBUMIN 2.9 g/dL (3.4-5.0); ALKALINE PHOSPHATASE 106 U/L (46-116); ALT (SGPT) 22 U/L (10-68); BILIRUBIN - TOTAL 0.32 mg/dL (0.2-1.3); CALC OSMOLALITY 284 mosm/kg (275-300); CALCIUM 8.8 mg/dL (8.5-10.1); CARBON DIOXIDE 28.6 mmol/L (21.0-32.0); CHLORIDE - SERUM 105 mmol/L (98-107); GLUCOSE 175 mg/dL (74-106); POTASSIUM - SERUM 4.2 mmol/L (3.5-5.1); PROTEIN - SERUM 6.7 g/dL (6.4-8.2); SODIUM 139 mmol/L (136-145); UREA NITROGEN 20 mg/dL (7-18); eGFR NON AFRICAN AMERICAN 82 mL/min (90-120)
[2018-02-17 12:04] VITALS: BP 147/81
[2018-02-17 13:37] VITALS: Ht 188 cm; Wt 93.2 kg
[2018-02-17 14:34] LABS: % SATURATION 17 % (15-55); IRON 48 ug/dl (35-150); TOTAL IRON BIND CAPACITY 279 ug/dl (260-445); UNSAT IRON BIND CAPACITY 231 ug/dl (150-375)
[2018-02-17 20:06] VITALS: BP 118/57
[2018-02-18 05:49] VITALS: BP 124/64
[2018-02-18 06:07] LABS: BASOPHILS 1.1 % (0-2); EOSINOPHILS 6.3 % (0-7); HEMATOCRIT 35.3 % (42.0-54.0); HEMOGLOBIN 10.8 g/dL (13.5-17.5); IMMATURE GRANULOCYTES 0.8 % (0-5); LYMPHOCYTES 25.1 % (15-50); MCH 27.9 pg (26.0-34.0); MCHC 30.6 g/dL (31.0-37.0); MCV 91.2 fL (80.0-100.0); MEAN PLATELET VOLUME 9.9 fL (7.4-10.4); MONOCYTES 8.9 % (2-11); NEUTROPHILS 57.8 % (40-80); PLATELET COUNT 322 10x3/uL (130-400); RBC 3.87 10x6/uL (4.20-6.10); RDW 17.9 % (11.5-14.5); WBC 7.5 10x3/uL (4.8-10.8)
[2018-02-18 06:23] LABS: ALBUMIN 2.8 g/dL (3.4-5.0); ALKALINE PHOSPHATASE 94 U/L (46-116); ALT (SGPT) 20 U/L (10-68); BILIRUBIN - TOTAL 0.18 mg/dL (0.2-1.3); CALC OSMOLALITY 280 mosm/kg (275-300); CALCIUM 8.6 mg/dL (8.5-10.1); CARBON DIOXIDE 24.2 mmol/L (21.0-32.0); CHLORIDE - SERUM 106 mmol/L (98-107); CREATININE - SERUM 0.9 mg/dL (0.6-1.3); GLUCOSE 159 mg/dL (74-106); PROTEIN - SERUM 6.3 g/dL (6.4-8.2); SODIUM 138 mmol/L (136-145); UREA NITROGEN 18 mg/dL (7-18); eGFR NON AFRICAN AMERICAN > 90 mL/min (90-120)
[2018-02-18 08:20] VITALS: BP 132/75
[2018-02-18 10:22] LABS: FOLATE (FOLIC ACID) - SERUM 9.1 ng/mL (>3.0)
[2018-02-18 12:38] VITALS: BP 105/64
[2018-02-18 17:06] VITALS: BP 138/79
[2018-02-18 17:54] LABS: ERYTHROCYTE SEDIMENTATION RATE 4 mm/hr (0-20)
[2018-02-18 20:29] VITALS: BP 123/69
[2018-02-19 05:12] VITALS: BP 122/64
[2018-02-19 05:18] VITALS: BP 124/71
[2018-02-19 06:01] LABS: BASOPHILS 0.8 % (0-2); EOSINOPHILS 6.3 % (0-7); HEMATOCRIT 36.4 % (42.0-54.0); HEMOGLOBIN 11.1 g/dL (13.5-17.5); IMMATURE GRANULOCYTES 0.9 % (0-5); LYMPHOCYTES 21.4 % (15-50); MCH 28.1 pg (26.0-34.0); MCHC 30.5 g/dL (31.0-37.0); MCV 92.2 fL (80.0-100.0); MEAN PLATELET VOLUME 10.3 fL (7.4-10.4); MONOCYTES 10.5 % (2-11); NEUTROPHILS 60.1 % (40-80); PLATELET COUNT 362 10x3/uL (130-400); RBC 3.95 10x6/uL (4.20-6.10); RDW 17.8 % (11.5-14.5); WBC 7.4 10x3/uL (4.8-10.8)
[2018-02-19 06:28] LABS: ALKALINE PHOSPHATASE 99 U/L (46-116); ALT (SGPT) 19 U/L (10-68); CALCIUM 8.8 mg/dL (8.5-10.1); CARBON DIOXIDE 25.6 mmol/L (21.0-32.0); CHLORIDE - SERUM 105 mmol/L (98-107); CREATININE - SERUM 0.9 mg/dL (0.6-1.3); POTASSIUM - SERUM 4.1 mmol/L (3.5-5.1); PROTEIN - SERUM 6.6 g/dL (6.4-8.2); SODIUM 139 mmol/L (136-145); eGFR NON AFRICAN AMERICAN > 90 mL/min (90-120)
[2018-02-19 06:30] LABS: CALC OSMOLALITY 281 mosm/kg (275-300); GLUCOSE 102 mg/dL (74-106); UREA NITROGEN 23 mg/dL (7-18)
[2018-02-19 08:45] VITALS: BP 147/76
[2018-02-19 12:45] VITALS: BP 117/60
[2018-02-19 20:00] VITALS: BP 112/67
[2018-02-20] VITALS: BP 131/73
[2018-02-20 04:00] VITALS: BP 112/62
[2018-02-20 06:05] LABS: BASOPHILS 0.6 % (0-2); EOSINOPHILS 5.6 % (0-7); HEMATOCRIT 36.4 % (42.0-54.0); HEMOGLOBIN 11.1 g/dL (13.5-17.5); IMMATURE GRANULOCYTES 0.7 % (0-5); LYMPHOCYTES 17.6 % (15-50); MCH 28.2 pg (26.0-34.0); MCHC 30.5 g/dL (31.0-37.0); MCV 92.4 fL (80.0-100.0); MEAN PLATELET VOLUME 9.8 fL (7.4-10.4); MONOCYTES 9.8 % (2-11); NEUTROPHILS 65.7 % (40-80); PLATELET COUNT 354 10x3/uL (130-400); RBC 3.94 10x6/uL (4.20-6.10); RDW 17.9 % (11.5-14.5); WBC 8.5 10x3/uL (4.8-10.8)
[2018-02-20 06:20] LABS: ALBUMIN 3.2 g/dL (3.4-5.0); ALKALINE PHOSPHATASE 109 U/L (46-116); ALT (SGPT) 22 U/L (10-68); BILIRUBIN - TOTAL 0.18 mg/dL (0.2-1.3); CALC OSMOLALITY 280 mosm/kg (275-300); CALCIUM 9.3 mg/dL (8.5-10.1); CARBON DIOXIDE 26.9 mmol/L (21.0-32.0); CHLORIDE - SERUM 103 mmol/L (98-107); GLUCOSE 131 mg/dL (74-106); POTASSIUM - SERUM 4.2 mmol/L (3.5-5.1); PROTEIN - SERUM 6.8 g/dL (6.4-8.2); SODIUM 138 mmol/L (136-145); UREA NITROGEN 22 mg/dL (7-18); eGFR NON AFRICAN AMERICAN 82 mL/min (90-120)
[2018-02-20 09:12] VITALS: BP 162/84
[2018-02-20 14:01] VITALS: BP 131/65
[2018-02-20 20:00] VITALS: BP 112/62
[2018-02-21] VITALS: BP 104/55
[2018-02-21 04:00] VITALS: BP 130/68
[2018-02-21 05:34] LABS: BASOPHILS 0.7 % (0-2); EOSINOPHILS 4.9 % (0-7); HEMATOCRIT 33.4 % (42.0-54.0); HEMOGLOBIN 10.4 g/dL (13.5-17.5); IMMATURE GRANULOCYTES 0.7 % (0-5); MCH 28.1 pg (26.0-34.0); MCHC 31.1 g/dL (31.0-37.0); MEAN PLATELET VOLUME 9.6 fL (7.4-10.4); MONOCYTES 8.7 % (2-11); PLATELET COUNT 322 10x3/uL (130-400); RDW 17.9 % (11.5-14.5); WBC 7.1 10x3/uL (4.8-10.8)
[2018-02-21 05:38] LABS: MCV 90.3 fL (80.0-100.0)
[2018-02-21 06:02] LABS: ALKALINE PHOSPHATASE 105 U/L (46-116); ALT (SGPT) 20 U/L (10-68); BILIRUBIN - TOTAL 0.16 mg/dL (0.2-1.3); CALC OSMOLALITY 279 mosm/kg (275-300); CARBON DIOXIDE 25.6 mmol/L (21.0-32.0); CHLORIDE - SERUM 104 mmol/L (98-107); GLUCOSE 113 mg/dL (74-106); POTASSIUM - SERUM 4.2 mmol/L (3.5-5.1); PROTEIN - SERUM 6.4 g/dL (6.4-8.2); SODIUM 138 mmol/L (136-145); UREA NITROGEN 22 mg/dL (7-18); eGFR NON AFRICAN AMERICAN 82 mL/min (90-120)
[2018-02-21 12:33] VITALS: BP 132/67
[2018-02-21 17:34] VITALS: BP 119/60
[2018-02-21 19:50] VITALS: BP 115/61
[2018-02-22] VITALS: BP 96/61
[2018-02-22 04:00] VITALS: BP 122/68
[2018-02-22 10:28] VITALS: BP 127/75
[2018-02-22 12:37] VITALS: BP 119/62
[2018-02-22 17:10] VITALS: BP 133/67
[2018-02-22 22:54] VITALS: BP 120/59
[2018-02-23 05:09] VITALS: BP 148/71
[2018-02-23 05:54] LABS: BASOPHILS 0.7 % (0-2); EOSINOPHILS 3.2 % (0-7); HEMATOCRIT 33.4 % (42.0-54.0); HEMOGLOBIN 10.1 g/dL (13.5-17.5); IMMATURE GRANULOCYTES 0.5 % (0-5); LYMPHOCYTES 21.6 % (15-50); MCH 27.6 pg (26.0-34.0); MCHC 30.2 g/dL (31.0-37.0); MCV 91.3 fL (80.0-100.0); MEAN PLATELET VOLUME 10.3 fL (7.4-10.4); MONOCYTES 11.1 % (2-11); NEUTROPHILS 62.9 % (40-80); PLATELET COUNT 346 10x3/uL (130-400); RBC 3.66 10x6/uL (4.20-6.10); RDW 17.9 % (11.5-14.5); WBC 7.5 10x3/uL (4.8-10.8)
[2018-02-23 06:06] LABS: CALC OSMOLALITY 281 mosm/kg (275-300); CALCIUM 8.9 mg/dL (8.5-10.1); CARBON DIOXIDE 26.8 mmol/L (21.0-32.0); CHLORIDE - SERUM 105 mmol/L (98-107); GLUCOSE 98 mg/dL (74-106); POTASSIUM - SERUM 3.8 mmol/L (3.5-5.1); SODIUM 139 mmol/L (136-145); UREA NITROGEN 23 mg/dL (7-18); eGFR NON AFRICAN AMERICAN 82 mL/min (90-120)
[2018-02-23 08:00] VITALS: BP 139/70
[2018-02-23 13:06] VITALS: BP 139/75
[2018-02-23 16:30] VITALS: BP 124/66
[2018-02-23 20:00] VITALS: BP 109/65
[2018-02-24 04:00] VITALS: BP 139/79
[2018-02-24 05:55] LABS: BASOPHILS 0.8 % (0-2); HEMATOCRIT 34.6 % (42.0-54.0); HEMOGLOBIN 10.4 g/dL (13.5-17.5); IMMATURE GRANULOCYTES 0.4 % (0-5); LYMPHOCYTES 15.7 % (15-50); MCH 27.7 pg (26.0-34.0); MCHC 30.1 g/dL (31.0-37.0); MCV 92.3 fL (80.0-100.0); MEAN PLATELET VOLUME 10.2 fL (7.4-10.4); MONOCYTES 11.7 % (2-11); NEUTROPHILS 67.4 % (40-80); PLATELET COUNT 389 10x3/uL (130-400); RBC 3.75 10x6/uL (4.20-6.10); WBC 7.8 10x3/uL (4.8-10.8)
[2018-02-24 06:18] LABS: ANION GAP 14.6 mmol/L (8-16); BILIRUBIN - TOTAL 0.23 mg/dL (0.2-1.3); CALCIUM 9.1 mg/dL (8.5-10.1); CARBON DIOXIDE 25.4 mmol/L (21.0-32.0); CREATININE - SERUM 1.1 mg/dL (0.6-1.3); PROTEIN - SERUM 6.6 g/dL (6.4-8.2)
[2018-02-24 09:23] VITALS: BP 120/60
[2018-02-24 11:36] VITALS: BP 123/66
[2018-02-24 16:28] VITALS: BP 109/60
[2018-02-24 20:00] VITALS: BP 98/62
[2018-02-25 06:08] VITALS: BP 132/77
[2018-02-25 06:16] LABS: BASOPHILS 0.4 % (0-2); EOSINOPHILS 3.9 % (0-7); HEMATOCRIT 32.5 % (42.0-54.0); HEMOGLOBIN 9.9 g/dL (13.5-17.5); IMMATURE GRANULOCYTES 0.4 % (0-5); LYMPHOCYTES 19.8 % (15-50); MCHC 30.5 g/dL (31.0-37.0); MCV 91.8 fL (80.0-100.0); MEAN PLATELET VOLUME 10.3 fL (7.4-10.4); MONOCYTES 13.8 % (2-11); NEUTROPHILS 61.7 % (40-80); PLATELET COUNT 369 10x3/uL (130-400); RBC 3.54 10x6/uL (4.20-6.10); RDW 17.7 % (11.5-14.5); WBC 7.4 10x3/uL (4.8-10.8)
[2018-02-25 06:31] LABS: ALBUMIN 2.9 g/dL (3.4-5.0); ALKALINE PHOSPHATASE 106 U/L (46-116); ALT (SGPT) 18 U/L (10-68); BILIRUBIN - TOTAL 0.28 mg/dL (0.2-1.3); CALC OSMOLALITY 281 mosm/kg (275-300); CALCIUM 8.8 mg/dL (8.5-10.1); CHLORIDE - SERUM 104 mmol/L (98-107); GLUCOSE 90 mg/dL (74-106); PROTEIN - SERUM 6.4 g/dL (6.4-8.2); SODIUM 139 mmol/L (136-145); UREA NITROGEN 23 mg/dL (7-18); eGFR NON AFRICAN AMERICAN 82 mL/min (90-120)
[2018-02-25 09:02] VITALS: BP 137/73
[2018-02-25] MEDS ORDERED: NORCO-7.5 PO (10:56)
[2018-02-25] MEDS ORDERED: NEURONTIN 300300 MG PO (10:56)
[2018-02-25] MEDS ORDERED: VITAMIN B12 INJ IM (10:57)
[2018-02-25] MEDS ORDERED: PROTONIX40 MG PO (10:57)
== END 2018-02-25 12:33 | disposition short-term general hospital (02) | DRG 948 ==
LOC: D.ER 17:43 → D.EDHOLD 20:25 → OBSVTIME 20:25 → D.MS 20:25
PROVIDERS: Emergency Medicine; Family Medicine; Internal Medicine Nephrology
DX: R53.1 Weakness (principal); N17.9 Acute kidney failure, unspecified; R26.9 Unspecified abnormalities of gait and mobility; M79.605 Pain in left leg; M79.604 Pain in right leg; E11.9 Type 2 diabetes mellitus without complications; Z79.84 Long term (current) use of oral hypoglycemic drugs; D50.9 Iron deficiency anemia, unspecified; I10 Essential (primary) hypertension; E78.5 Hyperlipidemia, unspecified; I25.10 Atherosclerotic heart disease of native coronary artery without angina pectoris; I25.2 Old myocardial infarction; E53.8 Deficiency of other specified B group vitamins; D49.2 Neoplasm of unspecified behavior of bone, soft tissue, and skin